=== PATIENT | female | born 1985 | race Caucasian/White ===

== ENCOUNTER 2018-04-20 09:53 | Emergency (ER) | payer SELFPAY, MEDICAID ==
[2018-04-20 10:42] LABS: URINE BLOOD (Dip) POC 2+ (NEGATIVE); URINE GLUCOSE (Dip) POC Negative (NEGATIVE); URINE KETONES (Dip) POC Negative (NEGATIVE); URINE LEUKOCYTE EST (Dip) POC Negative (NEGATIVE); URINE NITRITE (Dip) POC Negative (NEGATIVE); URINE TOTAL PROTEIN POC Negative (NEGATIVE)
[2018-04-20 10:42] LABS: URINE PH (Dip) POC 5.5 (5.0-8.5)
[2018-04-20] MEDS: METHYLPREDNISOLONE 125 MG INJ IM (10:47)
[2018-04-20] MEDS: DIPHENHYDRAMINE 50 MG INJ IM (10:47)
== END 2018-04-20 11:32 | disposition home or self-care (01) ==
LOC: FTE 09:53
DX: T78.1XXA Other adverse food reactions, not elsewhere classified, initial encounter (principal)
CPT/HCPCS: 81003; 81025; 96372; 99284-25